=== PATIENT | male | born 1975 ===

== ENCOUNTER 2020-06-03 13:41 | Emergency (ER) | payer OTHER, SELFPAY ==
[2020-06-03] VITALS (18 sets, daily range): BP systolic 127–144; BP diastolic 74–89; PULSE 68–90; RESP 12–21; TEMP 36.4; O2SAT 96–100
--- NOTE | 2020-06-03 13:52 | ED.GENADUL_ITS ---
Discharge Plan Disposition Patient Disposition: HOME Condition: Stable Discharge Details Clinical Impression: Anterior shoulder dislocation Primary Care Provider: Unknown,Unknown ED Provider: Lilia Garcia Home Meds and New Rx's Prescriptions: Continued simvastatin 5 mg Tablet 5 mg PO DAILY RF: 0 metformin 1,000 mg Tablet 1,000 mg PO BID RF: 0 Invokana 300 mg Tablet 300 mg PO DAILY RF: 0 benazepril 5 mg Tablet 5 mg PO DAILY RF: 0 Discharge Instructions Instructions: Shoulder Dislocation (ED) Additional Instructions: Keep your right arm in the sling continuously over the next few days and then as much as possible until follow-up with orthopedics. Apply ice to the affected area several times daily for 20 minutes at a time. Alternate tylenol and motrin as needed and directed for pain. Take the oxycodone for pain not relieved with Tylenol or Motrin. Call an orthopedist in your area tomorrow to schedule follow-up appointment for reevaluation in the next 1 to 2 weeks. Stand Alone Forms: Work Release Discharge Data Discharge Date/Time-TO BE ENTERED AT DEPARTURE: 06/03/20 16:57 Discharge Physician: Lilia Garcia Medical Decision Making 5225 -- 45-year-old male with a history of hypertension, hyperlipidemia and diabetes who presents for right shoulder pain and concern for dislocation after fall on ice just prior to arrival Patient appears uncomfortable. He has a deformity to his right anterior shoulder. He is neurovascularly intact. There are no open wounds. We will give a dose of morphine and refer for right shoulder x-ray and prepare for likely sedation and reduction. 1500 -- X-ray confirmed anterior shoulder dislocation. With nursing and respiratory at bedside, 60 mg of propofol given and shoulder reduced with traction and external rotation on first attempt. Tolerated procedure well. Sling placed. Reduction confirmed by x-ray. Patient was awake and alert shortly after procedure and admitted to significant improvement of pain. 1620 --patient ambulatory and no acute complaints. He remains neurovascularly intact post procedure. He was given a disc for follow-up with orthopedics in [place]. He has a ride home. Patient given oxycodone to go. He is instructed on importance of RICE. Usual and customary return precautions given prior to discharge. Medical Records Medical records reviewed: Yes I reviewed the patient's medical records. Imaging Data Radiologic Study: Radiologist's impression: XR SHOULDER RT COMPLETE 2+V CLINICAL HISTORY: s/p fall, r/o dislocation/fracture. TECHNIQUE: 2D digital imaging was performed. COMPARISON: No exams were available for comparison FINDINGS: BONES: No acute fracture is present. No bony destructive lesion is seen. JOINTS: There is an anterior right shoulder dislocation. SOFT TISSUE: Normal. IMPRESSION: Right anterior shoulder dislocation. Findings were discussed with the emergency department on the date of the examination. XR Right Shoulder Exam date and time: 06/03/2020 3:42 PM Age: 45 years old Clinical indication: Injury or trauma; Other: Post reduction. ; Blunt trauma (contusions or hematomas); Injury date: 06/03/20; Injury details: Post reduction right shoulder. TECHNIQUE: Imaging protocol: XR Right shoulder. Views: 2 or more views. COMPARISON: CR XR SHOULDER RT COMPLETE 2+V 06/03/2020 2:38 PM FINDINGS: Bones/joints: The patient is status post reduction of the prior anterior dislocation. There is no evidence of a fracture. Soft tissues: Normal. IMPRESSION: Status post reduction of the prior anterior dislocation. HPI General Mode of arrival: ambulatory . Date/Time Provider Initiated Documentation: 06/03/20 13:43 . Limitations to Documentation: no limitations . Information obtained by: patient . HPI Narrative: Patient is a 45-year-old male who presents with right shoulder pain and concern for dislocation after slip and fall on ice prior to arrival. Patient states he was out on a work call when he was walking down a ramp which was slippery with ice and he attempted to brace himself while holding onto a railing and felt his right shoulder pop out. He states he also fell to the ground but denies any injuries other than his right shoulder. Patient states he is unable to move his right shoulder due to pain and sensation of feeling stuck. He denies any head injury. Patient lives in [place] but has been staying here in [place] for his job. Related Data Home Medications Medication Instructions Recorded Confirmed Invokana 300 mg PO DAILY 06/03/20 06/03/20 benazepril 5 mg PO DAILY 06/03/20 06/03/20 metformin 1,000 mg PO BID 06/03/20 06/03/20 simvastatin 5 mg PO DAILY 06/03/20 06/03/20 Allergies Allergy/AdvReac Type Severity Reaction Status Date / Time No Known Allergies Allergy Unverified 06/03/20 13:51 General Stated Complaint: Orthopedic MESFIN: 3 Review of Systems All systems reviewed & are unremarkable except as noted in HPI and below Constitutional Constitutional: Reports as per HPI, Denies chills and Denies fever(s) Eyes Eyes: Denies blurry vision ENT Ears, Nose, Mouth, and Throat: Denies dizziness, Denies sore throat and Denies throat swelling Cardiovascular Cardiovascular: Denies chest pain and Denies dyspnea Respiratory Respiratory: Denies cough and Denies dyspnea Gastrointestinal Gastrointestinal: Denies abdominal pain, Denies diarrhea and Denies vomiting Genitourinary Genitourinary: Denies hematuria and Denies dysuria Musculoskeletal Musculoskeletal: Denies back pain and Denies numbness Integumentary/Breasts Skin/Breast: Denies lesions and Denies rash Neurologic Neurologic: Denies dizziness, Denies localized weakness and Denies numbness Allergic/Immunologic Allergic/Immunologic: Denies throat swelling PFSH Medical History (Updated 06/03/20 @ 16:38 by Lilia Garcia DO) Diabetes HTN (hypertension) Hx of hyperlipidemia Surgical History (Updated 06/03/20 @ 14:15 by Lilia Garcia DO) No significant past surgical history Social History (Updated 06/03/20 @ 14:15 by Lilia Garcia DO) Smoking/Tobacco Use Status: Former Tobacco Use Smoking risk assessment performed?: Yes Alcohol Intake: current Alcohol Intake frequency: a few times a month Alcohol type: wine Substance use type: does not use Exam Const General: cooperative, healthy appearing and no acute distress HENMT Head: normal to inspection Mouth: oral mucosae normal Eyes General: appearance normal, both eyes and all related structures Neck Neck: normal visual inspection Resp Effort & Inspection: normal respiratory effort and able to speak in complete sentences Cardio Rate: regular rate Skin General skin exam: no rashes or lesions noted Neuro General: patient alert, patient awake and patient oriented x3 Motor: muscle tone normal throughout Extrem Other: There is no deformity noted and tenderness to palpation to the right anterior shoulder. No evidence of edema, ecchymosis, crepitus to right shoulder. Remainder of right upper extremity appears within normal limits. Right radial and ulnar pulses intact. Cap refill less than 2 seconds. No other evidence of orthopedic injury. Psych Appearance: grossly normal Affect: normal affect Course Vital Signs Vital signs: Vital Signs Temperature 97.5 F L 06/03/20 13:46 Pulse 73 06/03/20 13:46 Respiratory Rate 16 06/03/20 13:46 Blood Pressure 144/87 H 06/03/20 13:46 Pulse Oximetry 99 06/03/20 13:46 Temperature 97.5 F L 06/03/20 13:46 Temperature Source Skin 06/03/20 13:46 Pulse 73 06/03/20 13:46 Respiratory Rate 16 06/03/20 13:46 Respiratory Effort Non-Labored 06/03/20 13:46 Blood Pressure 144/87 H 06/03/20 13:46 Blood Pressure Position Sitting 06/03/20 13:46 Pulse Oximetry 99 06/03/20 13:46 Pain Level 10 06/03/20 13:46 Procedures Orthopedic Joint Reduction Joint #1: Time Out Performed: Yes Side: right Joint Reduction Location: shoulder Analgesia: procedural sedation Shoulder Technique Used (if applicable): traction/counter-traction and external rotation Post-reduction neuro exam: intact Post-reduction vascular: intact Post Reduction X-Ray Obtained: Yes Post Reduction X-Ray Results: reduced Splint Applied: Yes (sling) Patient Tolerated Procedure: well
--- NOTE | 2020-06-03 14:15 | DI.RAD_ITS ---
EXAM: XR SHOULDER RT COMPLETE 2+V CLINICAL HISTORY: s/p fall, r/o dislocation/fracture. TECHNIQUE: 2D digital imaging was performed. COMPARISON: No exams were available for comparison FINDINGS: BONES: No acute fracture is present. No bony destructive lesion is seen. JOINTS: There is an anterior right shoulder dislocation. SOFT TISSUE: Normal. IMPRESSION: Right anterior shoulder dislocation. Findings were discussed with the emergency department on the date of the examination. DATA REPOSITORY: RADIATION DOSE DELIVERED:
--- NOTE | 2020-06-03 15:15 | DI.RAD_ITS ---
EXAM: XR SHOULDER RT COMP POST REDUC CLINICAL HISTORY: s/p reduction, assess proper placement. TECHNIQUE: 2D digital imaging was performed. COMPARISON: CR XR SHOULDER RT COMPLETE 2+V from 06/03/2020 FINDINGS: BONES: No acute fracture is present. No bony destructive lesion is seen. JOINTS: There is been successful reduction of the prior anterior shoulder dislocation. SOFT TISSUE: Normal. IMPRESSION: Unremarkable radiographs of the right shoulder. Successful reduction of the prior anterior shoulder dislocation. DATA REPOSITORY: RADIATION DOSE DELIVERED:
[2020-06-03] MEDS: Propofol 200 MG/20 ML VIAL IVP (15:19)
--- NOTE | 2020-06-03 15:20 | NUR.NOTE ---
Nursing Note: assisted provider with right shoulder reduction after consent for conscious sedation given verbally- no signing r/t COVID restrictions. Entire procedure lasted approx 3 minutes.
--- NOTE | 2020-06-03 16:06 | DI.VRAD_ITS ---
PROCEDURE INFORMATION: Exam: XR Right Shoulder Exam date and time: 06/03/2020 3:42 PM Age: 45 years old Clinical indication: Injury or trauma; Other: Post reduction. ; Blunt trauma (contusions or hematomas); Injury date: 06/03/20; Injury details: Post reduction right shoulder. TECHNIQUE: Imaging protocol: XR Right shoulder. Views: 2 or more views. COMPARISON: CR XR SHOULDER RT COMPLETE 2+V 06/03/2020 2:38 PM FINDINGS: Bones/joints: The patient is status post reduction of the prior anterior dislocation. There is no evidence of a fracture. Soft tissues: Normal. IMPRESSION: Status post reduction of the prior anterior dislocation. Dictated and Authenticated by: Mike Mead MD. Ordering:ARMEN Rodrigues MD
== END 2020-06-03 16:57 | disposition home or self-care (01) ==
PROVIDERS: Emergency Provider Physician Assistant
DX: S43.014A Anterior dislocation of right humerus, initial encounter (principal); W00.0XXA Fall on same level due to ice and snow, initial encounter; I10 Essential (primary) hypertension; E11.9 Type 2 diabetes mellitus without complications; Z79.84 Long term (current) use of oral hypoglycemic drugs
CPT/HCPCS: 23650; 73030; 96374; 96375; J2704